=== PATIENT | male | born 1965 | race Caucasian/White ===

== ENCOUNTER 2017-06-09 22:41 | Emergency (ER) | payer BC ==
[~2017-06-09] VITALS: Ht 172.7 cm; Wt 97.5 kg
[~2017-06-09 22:41] MED LIST: CLON0.1T PO; HYDR-4077 PO; OLME40TA3 PO
--- NOTE | 2017-06-09 22:50 | NUR ---
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 -N/V. LAST TOOK HYDRAZALINE 100MG AT 7PM AT HOME. PATIENT IS AAOX4, AMBULATORY WITH STEADY GAIT, VSS, NAD NOTED, NONDIAPHORETIC. ONGOING CARDIAC AND VS MONITORING. GOWNED. COMFORT MEASURES RENDERED.
--- NOTE | 2017-06-09 23:00 | NUR ---
STARTED A SALINE LOCK ON THE RAC G18, BLOOD DRAWN AND SENT TO LAB.
--- NOTE | 2017-06-09 23:05 | NUR ---
MEDICATED PATIENT ORDERED BY DR IBRAHIM.
--- NOTE | 2017-06-09 23:15 | NUR ---
PATIENT REPORTS RELIEF FROM CHEST PAIN AFTER X2 OF NITRO SL. BP 150/70, NSR ON THE MONITOR, HR AT 60'S. WILL CONTINUE TO MONITOR.
[2017-06-09 23:35] LABS: BASOPHILS % (AUTO) 0.3 % (0.0-2.0); EOSINOPHILS # (AUTO) 0.1 /CMM (0.0-0.7); EOSINOPHILS % (AUTO) 1.7 % (0.0-6.0); HEMATOCRIT 43 % (39-51); HEMOGLOBIN 14.4 g/dL (13.5-17.5); LYMPHOCYTES # (AUTO) 3.5 /CMM (0.8-4.8); LYMPHOCYTES % (AUTO) 39.6 % (20.0-44.0); MEAN CORPUSCULAR HEMOGLOBIN 28 PG (26.0-33.0); MEAN CORPUSCULAR HGB CONC 33 g/dl (31.0-36.0); MEAN CORPUSCULAR VOLUME 84 fL (80-96); MONOCYTES # (AUTO) 0.7 /CMM (0.1-1.30); MONOCYTES % (AUTO) 8.4 % (2.0-12.0); NEUTROPHILS # (AUTO) 4.4 /CMM (1.8-8.9); PLATELET COUNT (AUTO) 228 /CMM (150-450); RED BLOOD CELL COUNT(AUTO) 5.18 MIL/uL (4.5-6.0); WHITE BLOOD COUNT (AUTO) 8.8 K/uL (4.3-11.0)
[2017-06-09 23:43] LABS: CALCIUM, SERUM 8.6 mg/dL (8.5-10.1); CARBON DIOXIDE 27 mmol/L (21-32); CHLORIDE 108 mmol/L (98-107); CREATININE 1.4 mg/dL (0.6-1.3); GLUCOSE 136 mg/dL (74-106); POTASSIUM 3.7 mmol/L (3.5-5.1); SODIUM SERUM 144 mmol/L (136-145); UREA NITROGEN, BLOOD 18 mg/dL (7-18)
[2017-06-09 23:50] LABS: TROPONIN I < 0.017 ng/mL (0.00-0.056)
[2017-06-09 23:54] LABS: D-DIMER < 0.19 mg/L(FEU (0.17-0.50); INR 0.97 (0.87-1.13); PARTIAL THROMBOPLASTIN TIME 27 SEC (23-34); PROTHROMBIN TIME 10.1 SECS (9.5-12.7)
[2017-06-09 23:55] LABS: ALANINE AMINOTRANSFERASE 30 U/L (12-78); ALBUMIN 3.7 g/dL (3.4-5.0); ALKALINE PHOSPHATASE 73 U/L (46-116); ASPARTATE AMINOTRANSFERASE 10 U/L (15-37); B-TYPE NATRIURETIC PEPTIDE 22 PG/ML (0-125); BILIRUBIN,TOTAL 0.4 mg/dL (0.2-1.0); TOTAL PROTEIN, SERUM 7.4 g/dL (6.4-8.2)
--- NOTE | 2017-06-10 00:59 | NUR ---
Patient does not wish to proceed with medical care recommended by Dr. Escobar. Patient given information related to possible complications, up to and including , which could occur as a result of leaving the hospital at this time. Patient verbalizes understanding of risks involved due to leaving against medical advice. Patient has signed AMA form.
--- NOTE | 2017-06-10 01:08 | NUR ---
IV removed. Catheter intact and site benign. Pressure and 4x4 applied to site. No bleeding noted. dPatient discharged to home in stable condition. Written and verbal after care instructions given. Patient verbalizes understanding of instruction. Patient is ambulatory with steady gait, no further complaints.
[2017-06-10 01:09] VITALS: BP 128/85
== END 2017-06-10 01:09 | disposition home or self-care (01) ==
LOC: ER 22:48
DX: R07.9 Chest pain, unspecified (principal); I10 Essential (primary) hypertension; F17.200 Nicotine dependence, unspecified, uncomplicated; E78.5 Hyperlipidemia, unspecified
CPT/HCPCS: 36415; 71010; 80048; 80076; 83880; 84484; 85025; 85378; 85730; 93005; 99285; A4606; Z7610